=== PATIENT | male | born 1960 | race Two or more races ===

== ENCOUNTER 2021-02-21 08:17 | Day surgery (SDC) | payer OTHER | END 2021-02-21 12:45 | disposition home or self-care (01) | LOC: CIR.AMB 08:17 | PROVIDERS: ATTEND Surgery | DX: D12.4 Benign neoplasm of descending colon (principal); K52.89 Other specified noninfective gastroenteritis and colitis; Z20.822 Contact with and (suspected) exposure to COVID-19; K64.8 Other hemorrhoids ==